=== PATIENT | female | born 1945 | race Native Hawaiian/Other Pacific Islander ===

== ENCOUNTER 2019-11-16 19:23 | Inpatient (IN) | payer OTHER ==
[~2019-11-16] VITALS: Ht 167.6 cm; Wt 75.9 kg
[~2019-11-16 19:23] MED LIST: AMLO2.5T PO; CALCIUM PO; DEXL60CA4 PO; DIPHENATOL2.5 MG OR; FISH OIL1000 MG OR; FOLI1TAB26 PO; GABA400C2 PO; LISI20TA11 PO; LOPERAMIDE2 MG OR; LORCET HD 10-321 TAB PO; METHADONE10 MG OR; METO50TA27 PO; MICRO-K10 MEQ OR; PAXIL40 MG PO; PROM25SU RE; ROSE PO; ROSU10TA PO; VITA400C10 PO; VITAMIN C PO; [UNRECOGNIZED DRUG - OTHER] PO
[2019-11-16 19:24] VITALS: BP 137/66; TEMP 99.1
[2019-11-16 20:35] LABS: POTASSIUM 2.8 mmol/L (3.6-5.2); SODIUM 128 mmol/L (136-145)
[2019-11-16 20:37] LABS: PLATELET COUNT 232 K/uL (152-353)
[2019-11-16 20:42] LABS: PARTIAL THROMBOPLASTIN TIME 21.1 SECONDS (24.5-33.6)
[2019-11-16 21:00] VITALS: BP 135/58
[2019-11-16 23:23] VITALS: BP 189/82; TEMP 100.4; Ht 167.6 cm; Wt 75.9 kg
[2019-11-17 04:00] VITALS: BP 147/60; TEMP 99.2
[2019-11-17 08:00] VITALS: BP 136/60; TEMP 99
[2019-11-17 08:08] LABS: PLATELET COUNT 181 K/uL (152-353)
[2019-11-17 08:40] LABS: POTASSIUM 3.1 mmol/L (3.6-5.2)
[2019-11-17 12:00] VITALS: BP 125/57; TEMP 99.3
[2019-11-17 16:00] VITALS: BP 148/49; TEMP 99.3
[2019-11-17 20:17] VITALS: BP 141/54; TEMP 99.7
[2019-11-17 23:30] VITALS: BP 169/64; TEMP 98.7
[2019-11-18 04:00] VITALS: BP 148/61; TEMP 98.5
[2019-11-18 05:48] LABS: PLATELET COUNT 173 K/uL (152-353)
[2019-11-18 05:59] LABS: POTASSIUM 3.6 mmol/L (3.6-5.2)
[2019-11-18 08:00] VITALS: BP 121/47; TEMP 98.6
[2019-11-18 12:00] VITALS: BP 121/55; TEMP 98
[2019-11-18 16:00] VITALS: BP 133/61; TEMP 98.7
[2019-11-18 20:00] VITALS: BP 117/51; TEMP 99.2
[2019-11-18 23:54] VITALS: BP 100/55; TEMP 98.3
[2019-11-19 04:00] VITALS: BP 118/50; TEMP 97.9
[2019-11-19 05:50] LABS: PLATELET COUNT 176 K/uL (152-353)
[2019-11-19 06:03] LABS: POTASSIUM 4.2 mmol/L (3.6-5.2)
[2019-11-19 08:00] VITALS: BP 125/55; TEMP 97.9
[2019-11-19 12:00] VITALS: BP 140/61; TEMP 97.8
== END 2019-11-19 16:55 | disposition home or self-care (01) | DRG 557 ==
LOC: ED 19:23 → MED/SURG 21:08
PROVIDERS: Hospitalist; ADMIT Internal Medicine Endocrinology, Diabetes & Metabolism
DX: M62.82 Rhabdomyolysis (principal); G92 Toxic encephalopathy; N17.9 Acute kidney failure, unspecified; N30.00 Acute cystitis without hematuria; E87.6 Hypokalemia; Z91.81 History of falling; G89.4 Chronic pain syndrome; E83.42 Hypomagnesemia; G62.9 Polyneuropathy, unspecified; I12.9 Hypertensive chronic kidney disease with stage 1 through stage 4 chronic kidney disease, or unspecified chronic kidney disease; N18.3 Chronic kidney disease, stage 3 (moderate)
CPT/HCPCS: 36415; 51702; 80048; 80053; 80307; 80320; 81000; 82550; 82553; 83605; 83735; 83880; 84484; 85027; 85610; 85730; 87040; 87086; 87088; 93005; 94640; 94664; 94760; 96360; 96365; 99284; J1650; J1956; J3475

== ENCOUNTER 2020-11-02 19:35 | Emergency (ER) | payer OTHER ==
[~2020-11-02] VITALS: Ht 162.6 cm; Wt 68.0 kg
[2020-11-02 21:42] VITALS: BP 123/66; TEMP 98.9
== END 2020-11-02 21:42 | disposition home or self-care (01) ==
LOC: ED 19:35
DX: G89.29 Other chronic pain (principal); M06.89 Other specified rheumatoid arthritis, multiple sites
CPT/HCPCS: 96372; 99283; J2175; J2930

== ENCOUNTER 2020-12-23 16:35 | Emergency (ER) | payer OTHER ==
[~2020-12-23] VITALS: Ht 162.6 cm; Wt 68.0 kg
[2020-12-23 17:00] LABS: PLATELET COUNT 250 K/uL (152-353)
[2020-12-23 17:08] LABS: POTASSIUM 3.5 mmol/L (3.6-5.2); SODIUM 127 mmol/L (136-145)
[2020-12-23 17:15] LABS: PARTIAL THROMBOPLASTIN TIME 23.8 SECONDS (24.5-33.6)
[2020-12-23 20:40] VITALS: BP 163/72; TEMP 97.8
== END 2020-12-23 20:40 | disposition short-term general hospital (02) ==
LOC: ED 16:35
PROVIDERS: Hospitalist
DX: S12.091A Other nondisplaced fracture of first cervical vertebra, initial encounter for closed fracture (principal); S12.090A Other displaced fracture of first cervical vertebra, initial encounter for closed fracture; S22.058A Other fracture of T5-T6 vertebra, initial encounter for closed fracture; Z11.52 Encounter for screening for COVID-19; W18.39XA Other fall on same level, initial encounter; Y92.098 Other place in other non-institutional residence as the place of occurrence of the external cause
CPT/HCPCS: 36415; 80053; 80320; 82550; 82553; 83880; 84484; 85027; 85610; 85730; 87635; 93005; 96360; 96365; 96375; 99284; J0696; J1170; J1885; J2405; U0003

== ENCOUNTER 2021-12-19 03:56 | Emergency (ER) | payer OTHER ==
[~2021-12-19] VITALS: Ht 162.6 cm; Wt 61.2 kg
[2021-12-19 04:02] VITALS: TEMP 99.1
[2021-12-19 04:26] LABS: PLATELET COUNT 235 K/uL (152-353)
[2021-12-19 04:33] LABS: POTASSIUM 2.8 mmol/L (3.6-5.2)
[2021-12-19 04:50] LABS: PARTIAL THROMBOPLASTIN TIME 24.4 SECONDS (24.5-33.6)
[2021-12-19 07:45] VITALS: BP 162/76
== END 2021-12-19 07:45 | disposition home or self-care (01) ==
LOC: ED 03:56
PROVIDERS: Hospitalist
DX: R10.84 Generalized abdominal pain (principal); R11.2 Nausea with vomiting, unspecified; N39.0 Urinary tract infection, site not specified; E87.6 Hypokalemia
CPT/HCPCS: 36415; 80053; 80320; 83690; 84484; 85027; 85610; 85730; 93005; 96360; 96365; 96375; 96376; 99283; 99284; J0696; J1642; J1885; J2270; J2405; Q9963

== ENCOUNTER 2022-04-26 20:03 | Emergency (ER) | payer OTHER ==
[~2022-04-26] VITALS: Ht 162.6 cm; Wt 61.2 kg
[2022-04-26 20:03] VITALS: TEMP 98
[2022-04-26 20:26] LABS: PLATELET COUNT 422 K/uL (152-353)
[2022-04-26 20:40] LABS: PARTIAL THROMBOPLASTIN TIME 26.7 SECONDS (24.5-33.6)
[2022-04-26 23:35] VITALS: BP 125/57
== END 2022-04-26 23:45 | disposition home or self-care (01) ==
LOC: ED 20:03
PROVIDERS: Emergency Medicine
DX: I16.0 Hypertensive urgency (principal); R51.9 Headache, unspecified
CPT/HCPCS: 80053; 83880; 84484; 85027; 85610; 85730; 93005; 96374; 96376; 99284; J2270; J2405

== ENCOUNTER 2022-04-28 20:30 | Emergency (ER) | payer OTHER ==
[~2022-04-28] VITALS: Ht 167.6 cm; Wt 59.0 kg
[2022-04-28 22:40] VITALS: BP 159/72; TEMP 98.3
== END 2022-04-28 22:40 | disposition home or self-care (01) ==
LOC: ED 20:30
DX: I16.0 Hypertensive urgency (principal)
CPT/HCPCS: 99283